=== PATIENT | female | born 1985 | race American Indian/Alaskan Native ===

== ENCOUNTER 2020-08-06 00:59 | Emergency (ER) | payer OTHER ==
--- NOTE | 2020-08-06 07:52 | Emergency Department Report ---
- General Chief complaint: Wound/Laceration Stated complaint: SURGICAL WOUND CHECK Time Seen by Provider: 08/06/20 07:12 Source: patient Mode of arrival: Ambulatory Limitations: No Limitations - History of Present Illness Initial comments: Patient is a 34-year-old female presents emergency room with complaints of a wound check. She states that she went to the [facility] on 07/15/2020 and had liposuction in the abdominoplasty performed at that time. She states that she is concerned about an incision to the right lower back. She states that she still has sutures in place. She states that she had a drain in that area previously and had it removed after 7 days and she states that they stitched the opening closed. She states beginning about 4 days ago she noticed a small opening to the area. She states that her Band-Aid does have some small amount of clear drainage. She denies any purulent drainage. She denies any fever, chills, vomiting, diarrhea. She states that she has been cleaning the area with hydrogen peroxide and alcohol. She states prior to her symptoms beginning she was using a cream that she got [id number] for scarring which was causing irritation and she stopped it after couple of days and believes that this may have originally caused the irritation. She denies any past medical history. No allergies to medications. Last menstrual cycle 07/23/2020. - Related Data Previous Rx's Medication Instructions Recorded Last Taken Type Mupirocin [Bactroban 2% OINT] 1 applic TP BID #1 tube 08/06/20 Unknown Rx cephALEXin [Keflex] 500 mg PO QID 7 Days #28 capsule 08/06/20 Unknown Rx Allergies Allergy/AdvReac Type Severity Reaction Status Date / Time No Known Allergies Allergy Unverified 08/06/20 01:27 Abscess Boil HPI - HPI Chief Complaint: Wound/Laceration Stated Complaint: SURGICAL WOUND CHECK Time Seen by Provider: 08/06/20 07:12 Home Medications: Previous Rx's Medication Instructions Recorded Last Taken Type Mupirocin [Bactroban 2% OINT] 1 applic TP BID #1 tube 08/06/20 Unknown Rx cephALEXin [Keflex] 500 mg PO QID 7 Days #28 capsule 08/06/20 Unknown Rx Allergies/Adverse Reactions: Allergies Allergy/AdvReac Type Severity Reaction Status Date / Time No Known Allergies Allergy Unverified 08/06/20 01:27 ED Review of Systems ROS: Stated complaint: SURGICAL WOUND CHECK Other details as noted in HPI Comment: All other systems reviewed and negative ED Past Medical Hx - Past Medical History Previous Medical History?: No - Surgical History Additional Surgical History: liposuction, tubal ligation - Social History Smoking Status: Never Smoker Substance Use Type: Alcohol - Medications Home Medications: Home Medications Medication Instructions Recorded Confirmed Last Taken Type Mupirocin [Bactroban 2% OINT] 1 applic TP BID #1 tube 08/06/20 Unknown Rx cephALEXin [Keflex] 500 mg PO QID 7 Days #28 capsule 08/06/20 Unknown Rx ED Physical Exam - General Limitations: No Limitations General appearance: alert, in no apparent distress - Head Head exam: Present: atraumatic, normocephalic - Eye Eye exam: Present: normal appearance - ENT ENT exam: Present: mucous membranes moist - Respiratory Respiratory exam: Absent: respiratory distress, accessory muscle use - Neurological Exam Neurological exam: Present: alert, oriented X3 - Psychiatric Psychiatric exam: Present: normal affect, normal mood - Skin Skin exam: Present: warm, dry, other (1 cm healing incision present to the right lower back, there are sutures in place, no wound dehiscence, there is grannulation tissue present, there is a small amount of surrounding erythema and increased warmth, no significant induration, no fluctuance, no drainage, no necrosis ) ED Course Vital Signs 08/06/20 08/06/20 01:27 08:03 Temperature 98.3 F 98.3 F Pulse Rate 82 85 Respiratory 18 18 Rate Blood Pressure 152/64 Blood Pressure 136/60 [Right] O2 Sat by Pulse 100 96 Oximetry ED Medical Decision Making - Lab Data Vital Signs 08/06/20 08/06/20 01:27 08:03 Temperature 98.3 F 98.3 F Pulse Rate 82 85 Respiratory 18 18 Rate Blood Pressure 152/64 Blood Pressure 136/60 [Right] O2 Sat by Pulse 100 96 Oximetry - Medical Decision Making Patient is a 34-year-old female presents emergency room with complaints of a wound check. She states that she went to the [facility] on 07/15/2020 and had liposuction in the abdominoplasty performed at that time. She states that she is concerned about an incision to the right lower back. She states that she still has sutures in place. She states that she had a drain in that area previously and had it removed after 7 days and she states that they stitched the opening closed. She states beginning about 4 days ago she noticed a small opening to the area. She states that her Band-Aid does have some small amount of clear drainage. She denies any purulent drainage. She denies any fever, chills, vomiting, diarrhea. She states that she has been cleaning the area with hydrogen peroxide and alcohol. She states prior to her symptoms beginning she was using a cream that she got [id number] for scarring which was causing irritation and she stopped it after couple of days and believes that this may have originally caused the irritation. She denies any past medica l history. No allergies to medications. Last menstrual cycle 07/23/2020. VSS. on exam: 1 cm healing incision present to the right lower back, there are sutures in place, no wound dehiscence, there is grannulation tissue present, there is a small amount of surrounding erythema and increased warmth, no significant induration, no fluctuance, no drainage, no necrosis. Appears to have small mild area of cellulitis. No signs of significant infection or abscess at this time. Patient given prescription for mupirocin ointment and Keflex. Discussed wound care with patient and discussed strict return precautions. Advised patient to have the area reexamined within the next 3 days, she verbalized understanding. Advised patient Please use medication as prescribed. Please stop cleaning the area with alcohol and hydrogen peroxide. Instead, please use the antibacterial soap and water twice a day and pat dry. Please do not use that ointment that was causing irritation previously. Please keep area clean, dry, covered. No hot tub, no pool, no soaking in water. Showering is fine. Follow-up with a primary care doctor in the next 3 days for reexamination. Return to emergency room for any new or worsening symptoms. Critical care attestation.: If time is entered above; I have spent that time in minutes in the direct care of this critically ill patient, excluding procedure time. ED Disposition Clinical Impression: Visit for wound check Cellulitis Qualifiers: Site of cellulitis: trunk Site of cellulitis of trunk: back Qualified Code(s): L03.312 - Cellulitis of back [any part except buttock] Disposition: DC-01 TO HOME OR SELFCARE Is pt being admited?: No Does the pt Need Aspirin: No Condition: Stable Instructions: Cellulitis, Adult Additional Instructions: Please use medication as prescribed. Please stop cleaning the area with alcohol and hydrogen peroxide. Instead, please use the antibacterial soap and water twice a day and pat dry. Please do not use that ointment that was causing irritation previously. Please keep area clean, dry, covered. No hot tub, no pool, no soaking in water. Showering is fine. Follow-up with a primary care doctor in the next 3 days for reexamination. Return to emergency room for any new or worsening symptoms. Prescriptions: Mupirocin [Bactroban 2% OINT] 1 applic TP BID #1 tube cephALEXin [Keflex] 500 mg PO QID 7 Days #28 capsule Referrals: PRIMARY MD LISANDRO [Primary Care Provider] - 2-3 Days DIANNA VEGA MD [Staff Physician] - 2-3 Days [facility] [Provider Group] - 2-3 Days Time of Disposition: 07:53 Print Language: PERSIAN
[2020-08-06 08:06] VITALS: BP 136/60
== END 2020-08-06 08:06 | disposition home or self-care (01) ==
LOC: ED 00:59
DX: L03.312 Cellulitis of back [any part except buttock and flank] (principal)
CPT/HCPCS: 99282